=== PATIENT | female | born 1955 | race African-American/Black ===

== ENCOUNTER 2019-10-19 15:24 | Inpatient (IN) | payer MEDICAID ==
[~2019-10-19] VITALS: Ht 162.6 cm; Wt 95.7 kg
[2019-10-19 16:07] LABS: BASOPHILS % 0.8 % (0.0-2.0); EOSINOPHILS % 0.4 % (0.0-5.0); HEMATOCRIT. 38.1 % (36.0-48.0); HEMOGLOBIN. 12.8 g/dL (12.0-16.0); LYMPHOCYTES % 20.9 % (20.0-50.0); MEAN CORPUSCULAR HEMOGLOBIN 30.6 pg (28.0-32.0); MEAN CORPUSCULAR VOLUME 90.8 fL (81.0-99.0); MEAN PLATELET VOLUME 7.9 fl (7.4-10.4); MONOCYTES % 5.3 % (2.0-8.0); NEUTROPHILS % 72.6 % (40.0-76.0); PLATELET 294 x1000/uL (130-400); RED CELL DISTRIBUTION WIDTH 13.8 % (11.6-14.6)
[2019-10-19 16:08] LABS: CHLORIDE 105 mEq/L (98-107)
[2019-10-19] MEDS ORDERED: SODIUM CHLORIDE 0.9% 1,000 ML IV ONE (21:16)
[2019-10-19] MEDS ORDERED: AZITHROMYCIN 500 MG in DEXT 5% WATER 250 ML IV ONE (21:30)
[2019-10-20] MEDS ORDERED: ACETAMINOPHEN 325MG TABLET PO PRN (08:45)
[2019-10-20 12:00] VITALS: BP 161/62
[2019-10-20] MEDS: AZITHROMYCIN 500 MG TABLET PO SCH (12:53)
[2019-10-20] MEDS ORDERED: HYDR-4135 MT (13:30)
[2019-10-20] MEDS ORDERED: FERR325T6 MT (13:30)
[2019-10-20] MEDS ORDERED: METO-539 PO (13:30)
[2019-10-20] MEDS ORDERED: DOCU-150 PO (13:30)
[2019-10-20] MEDS ORDERED: AMLO10TA80 PO (13:30)
[2019-10-20] MEDS ORDERED: ATOR40TA70 MT (13:30)
[2019-10-20] MEDS ORDERED: FOLI-43 PO (13:30)
[2019-10-20 13:38] VITALS: BP 161/62
[2019-10-20 16:00] VITALS: BP 139/56
[2019-10-20] MEDS: ENOXAPARIN 40MG/0.4ML SYR SUBCUT SCH (16:27)
[2019-10-20] MEDS: METOPROLOL TARTRATE 50MG TABLET PO SCH (16:50)
[2019-10-20 20:00] VITALS: BP 171/73
[2019-10-20] MEDS: ATORVASTATIN CALCIUM 40MG TABLET PO SCH (21:10)
[2019-10-20] MEDS: HYDRALAZINE HCL 50MG TABLET PO SCH (21:10)
[2019-10-20] MEDS: AMLODIPINE 5MG TABLET PO SCH (21:10)
[2019-10-20] MEDS: BENZONATATE 100MG CAPSULE PO PRN (21:10)
[2019-10-20 23:21] VITALS: BP 158/70
[2019-10-21 04:00] VITALS: BP 133/43
[2019-10-21] MEDS: HYDRALAZINE HCL 50MG TABLET PO SCH ×3 (05:39→22:42)
[2019-10-21 08:00] VITALS: BP 151/55
[2019-10-21] MEDS ORDERED: AMLODIPINE 10MG TABLET PO SCH (09:00)
[2019-10-21] MEDS: AZITHROMYCIN 500 MG TABLET PO SCH (09:21)
[2019-10-21] MEDS: DOCUSATE SODIUM 100MG CAPSULE PO SCH ×2 (09:21→13:20)
[2019-10-21] MEDS: FOLIC ACID 1MG TABLET PO SCH (09:21)
[2019-10-21] MEDS: ENOXAPARIN 40MG/0.4ML SYR SUBCUT SCH (09:24)
[2019-10-21] MEDS: AMLODIPINE 5MG TABLET PO SCH ×2 (09:56→20:37)
[2019-10-21 16:00] VITALS: BP 111/52
[2019-10-21] MEDS: METOPROLOL TARTRATE 50MG TABLET PO SCH (17:01)
[2019-10-21 20:08] VITALS: BP 124/48
[2019-10-21] MEDS: ATORVASTATIN CALCIUM 40MG TABLET PO SCH (20:37)
[2019-10-21 23:55] VITALS: BP 111/45
[2019-10-22 04:00] VITALS: BP 116/43
[2019-10-22] MEDS: HYDRALAZINE HCL 50MG TABLET PO SCH ×3 (05:31→21:44)
[2019-10-22 08:00] VITALS: BP 105/42
[2019-10-22] MEDS: DOCUSATE SODIUM 100MG CAPSULE PO SCH ×2 (08:23→14:34)
[2019-10-22] MEDS: AMLODIPINE 5MG TABLET PO SCH ×2 (09:00→21:44)
[2019-10-22] MEDS: FOLIC ACID 1MG TABLET PO SCH (09:12)
[2019-10-22] MEDS: AZITHROMYCIN 500 MG TABLET PO SCH (09:13)
[2019-10-22] MEDS: ENOXAPARIN 40MG/0.4ML SYR SUBCUT SCH (09:14)
[2019-10-22 12:00] VITALS: BP 141/48
[2019-10-22] MEDS: METOPROLOL TARTRATE 50MG TABLET PO SCH (18:12)
[2019-10-22 20:13] VITALS: BP 125/38
[2019-10-22] MEDS ORDERED: ENOXAPARIN 30MG/0.3ML SYR SUBCUT SCH (21:00)
[2019-10-22] MEDS: ATORVASTATIN CALCIUM 40MG TABLET PO SCH (21:44)
[2019-10-23] VITALS: BP 107/46
[2019-10-23 04:00] VITALS: BP 121/40
[2019-10-23] MEDS: HYDRALAZINE HCL 50MG TABLET PO SCH ×3 (05:14→21:05)
[2019-10-23] MEDS: PANTOPRAZOLE 40MG DR TABLET PO SCH (06:17)
[2019-10-23 08:00] VITALS: BP 106/49
[2019-10-23] MEDS: AMLODIPINE 5MG TABLET PO SCH ×2 (09:00→21:04)
[2019-10-23] MEDS: FOLIC ACID 1MG TABLET PO SCH (09:04)
[2019-10-23] MEDS: AZITHROMYCIN 500 MG TABLET PO SCH (09:04)
[2019-10-23] MEDS: DOCUSATE SODIUM 100MG CAPSULE PO SCH ×2 (09:04→16:50)
[2019-10-23 11:41] LABS: BASOPHILS % 0.5 % (0.0-2.0); EOSINOPHILS % 0.7 % (0.0-5.0); HEMATOCRIT. 35.9 % (36.0-48.0); LYMPHOCYTES % 24.2 % (20.0-50.0); MEAN CORPUSCULAR HEMOGLOBIN 30.9 pg (28.0-32.0); MEAN CORPUSCULAR VOLUME 92.2 fL (81.0-99.0); MONOCYTES % 4.7 % (2.0-8.0); NEUTROPHILS % 69.9 % (40.0-76.0); PLATELET 259 x1000/uL (130-400); RED CELL DISTRIBUTION WIDTH 13.7 % (11.6-14.6)
[2019-10-23 11:52] LABS: CHLORIDE 107 mEq/L (98-107)
[2019-10-23 12:00] VITALS: BP 122/41
[2019-10-23 12:05] LABS: PROTHROMBIN TIME 11.3 sec (9.6-11.0)
[2019-10-23 16:00] VITALS: BP 141/39
[2019-10-23] MEDS: SUCRALFATE 1 G/10 ML UDC PO SCH ×2 (16:40→21:04)
[2019-10-23] MEDS: METOPROLOL TARTRATE 50MG TABLET PO SCH (17:03)
[2019-10-23 20:00] VITALS: BP 147/97
[2019-10-23] MEDS: ATORVASTATIN CALCIUM 40MG TABLET PO SCH (21:04)
[2019-10-24] VITALS: BP 117/47
[2019-10-24 04:00] VITALS: BP 124/48
[2019-10-24] MEDS: SUCRALFATE 1 G/10 ML UDC PO SCH ×4 (05:51→20:34)
[2019-10-24] MEDS: PANTOPRAZOLE 40MG DR TABLET PO SCH (05:51)
[2019-10-24] MEDS: HYDRALAZINE HCL 50MG TABLET PO SCH ×3 (05:51→20:35)
[2019-10-24 08:00] VITALS: BP 136/48
[2019-10-24] MEDS: FOLIC ACID 1MG TABLET PO SCH (08:57)
[2019-10-24] MEDS: AZITHROMYCIN 500 MG TABLET PO SCH (08:57)
[2019-10-24] MEDS: DOCUSATE SODIUM 100MG CAPSULE PO SCH ×2 (08:57→17:40)
[2019-10-24] MEDS: AMLODIPINE 5MG TABLET PO SCH ×2 (09:23→20:35)
[2019-10-24 12:00] VITALS: BP 122/45
[2019-10-24 15:38] VITALS: BP 105/43
[2019-10-24] MEDS: METOPROLOL TARTRATE 50MG TABLET PO SCH (17:00)
[2019-10-24 20:00] VITALS: BP 125/55
[2019-10-24] MEDS: ATORVASTATIN CALCIUM 40MG TABLET PO SCH (20:34)
[2019-10-25] VITALS: BP 105/49
[2019-10-25 04:00] VITALS: BP 117/41
[2019-10-25] MEDS: PANTOPRAZOLE 40MG DR TABLET PO SCH (05:01)
[2019-10-25] MEDS: HYDRALAZINE HCL 50MG TABLET PO SCH ×3 (05:01→21:55)
[2019-10-25] MEDS: SUCRALFATE 1 G/10 ML UDC PO SCH ×4 (05:01→21:52)
[2019-10-25 06:28] LABS: BASOPHILS % 0.7 % (0.0-2.0); EOSINOPHILS % 1.4 % (0.0-5.0); HEMOGLOBIN. 11.8 g/dL (12.0-16.0); LYMPHOCYTES % 32.1 % (20.0-50.0); MEAN CORPUSCULAR HEMOGLOBIN 30.8 pg (28.0-32.0); MEAN CORPUSCULAR VOLUME 91.5 fL (81.0-99.0); NEUTROPHILS % 59.8 % (40.0-76.0); PLATELET 258 x1000/uL (130-400); RED BLOOD CELL COUNT 3.83 mill/uL (4.2-5.4); RED CELL DISTRIBUTION WIDTH 13.5 % (11.6-14.6); TOTAL IRON BINDING CAPACITY 214 ug/dL (250-450)
[2019-10-25 08:00] VITALS: BP 102/54
[2019-10-25] MEDS: AMLODIPINE 5MG TABLET PO SCH ×2 (09:00→21:55)
[2019-10-25] MEDS: DOCUSATE SODIUM 100MG CAPSULE PO SCH ×2 (09:39→17:07)
[2019-10-25] MEDS: FOLIC ACID 1MG TABLET PO SCH (09:39)
[2019-10-25] MEDS: AZITHROMYCIN 500 MG TABLET PO SCH (09:39)
[2019-10-25 12:00] VITALS: BP 122/42
[2019-10-25 16:00] VITALS: BP 126/45
[2019-10-25] MEDS: METOPROLOL TARTRATE 50MG TABLET PO SCH (17:00)
[2019-10-25 20:00] VITALS: BP 127/50
[2019-10-25] MEDS: ATORVASTATIN CALCIUM 40MG TABLET PO SCH (21:52)
[2019-10-26] VITALS: BP 117/44
[2019-10-26 04:00] VITALS: BP 121/47
[2019-10-26] MEDS: PANTOPRAZOLE 40MG DR TABLET PO SCH (05:25)
[2019-10-26] MEDS: SUCRALFATE 1 G/10 ML UDC PO SCH ×4 (05:25→21:00)
[2019-10-26] MEDS: HYDRALAZINE HCL 50MG TABLET PO SCH ×3 (05:26→21:01)
[2019-10-26 08:00] VITALS: BP 118/49
[2019-10-26 08:10] LABS: BASOPHILS % 0.6 % (0.0-2.0); EOSINOPHILS % 1.2 % (0.0-5.0); HEMATOCRIT. 34.5 % (36.0-48.0); HEMOGLOBIN. 11.8 g/dL (12.0-16.0); LYMPHOCYTES % 34.8 % (20.0-50.0); MEAN PLATELET VOLUME 7.9 fl (7.4-10.4); MONOCYTES % 6.4 % (2.0-8.0); PLATELET 251 x1000/uL (130-400); RED BLOOD CELL COUNT 3.79 mill/uL (4.2-5.4); RED CELL DISTRIBUTION WIDTH 13.7 % (11.6-14.6)
[2019-10-26] MEDS: AZITHROMYCIN 500 MG TABLET PO SCH (08:53)
[2019-10-26] MEDS: FOLIC ACID 1MG TABLET PO SCH (08:53)
[2019-10-26] MEDS: DOCUSATE SODIUM 100MG CAPSULE PO SCH ×2 (08:53→16:46)
[2019-10-26] MEDS: AMLODIPINE 5MG TABLET PO SCH ×2 (08:54→21:01)
[2019-10-26 12:00] VITALS: BP 118/46
[2019-10-26 16:00] VITALS: BP 118/53
[2019-10-26] MEDS: METOPROLOL TARTRATE 50MG TABLET PO SCH (16:46)
[2019-10-26 20:00] VITALS: BP 139/58
[2019-10-26] MEDS: ATORVASTATIN CALCIUM 40MG TABLET PO SCH (21:00)
[2019-10-27] VITALS: BP 136/47
[2019-10-27 04:00] VITALS: BP 135/52
[2019-10-27] MEDS: SUCRALFATE 1 G/10 ML UDC PO SCH ×4 (06:05→21:33)
[2019-10-27] MEDS: HYDRALAZINE HCL 50MG TABLET PO SCH ×3 (06:05→21:33)
[2019-10-27] MEDS: PANTOPRAZOLE 40MG DR TABLET PO SCH (06:05)
[2019-10-27 08:00] VITALS: BP 105/51
[2019-10-27 08:22] LABS: EOSINOPHILS % 1.4 % (0.0-5.0); HEMATOCRIT. 34.4 % (36.0-48.0); HEMOGLOBIN. 11.7 g/dL (12.0-16.0); LYMPHOCYTES % 35.8 % (20.0-50.0); MEAN CORPUSCULAR HEMOGLOBIN 31.1 pg (28.0-32.0); MEAN CORPUSCULAR VOLUME 91.3 fL (81.0-99.0); MEAN PLATELET VOLUME 8.1 fl (7.4-10.4); MONOCYTES % 6.2 % (2.0-8.0); NEUTROPHILS % 55.6 % (40.0-76.0); PLATELET 239 x1000/uL (130-400); RED BLOOD CELL COUNT 3.77 mill/uL (4.2-5.4); RED CELL DISTRIBUTION WIDTH 13.4 % (11.6-14.6)
[2019-10-27] MEDS: POLYETHYLENE GLYCOL 3350 (17GM) 1 DOSE PACK PO SCH (09:00)
[2019-10-27] MEDS: AMLODIPINE 5MG TABLET PO SCH ×2 (09:00→21:34)
[2019-10-27] MEDS: AZITHROMYCIN 500 MG TABLET PO SCH (09:54)
[2019-10-27] MEDS: DOCUSATE SODIUM 100MG CAPSULE PO SCH ×2 (09:54→18:00)
[2019-10-27] MEDS: FOLIC ACID 1MG TABLET PO SCH (09:54)
[2019-10-27 12:00] VITALS: BP_SYST 122; BP_SYST 133; BP_DIAS 63; BP_DIAS 73
[2019-10-27 16:00] VITALS: BP 125/57
[2019-10-27] MEDS: METOPROLOL TARTRATE 50MG TABLET PO SCH (17:00)
[2019-10-27 20:53] VITALS: BP 127/47
[2019-10-27] MEDS: ATORVASTATIN CALCIUM 40MG TABLET PO SCH (21:33)
[2019-10-28] VITALS: BP 111/42
[2019-10-28 04:00] VITALS: BP 116/47
[2019-10-28] MEDS: SUCRALFATE 1 G/10 ML UDC PO SCH ×4 (06:13→21:04)
[2019-10-28] MEDS: PANTOPRAZOLE 40MG DR TABLET PO SCH (06:13)
[2019-10-28] MEDS: HYDRALAZINE HCL 50MG TABLET PO SCH ×3 (06:14→21:04)
[2019-10-28 07:01] LABS: BASOPHILS % 0.6 % (0.0-2.0); EOSINOPHILS % 1.1 % (0.0-5.0); HEMATOCRIT. 36.5 % (36.0-48.0); HEMOGLOBIN. 12.4 g/dL (12.0-16.0); LYMPHOCYTES % 34.3 % (20.0-50.0); MEAN CORPUSCULAR HEMOGLOBIN 31.1 pg (28.0-32.0); MEAN CORPUSCULAR VOLUME 91.3 fL (81.0-99.0); MEAN PLATELET VOLUME 7.8 fl (7.4-10.4); MONOCYTES % 6.1 % (2.0-8.0); NEUTROPHILS % 57.9 % (40.0-76.0); PLATELET 261 x1000/uL (130-400); RED BLOOD CELL COUNT 3.99 mill/uL (4.2-5.4)
[2019-10-28 08:00] VITALS: BP 130/57
[2019-10-28] MEDS: AMLODIPINE 5MG TABLET PO SCH ×2 (09:53→21:00)
[2019-10-28] MEDS: POLYETHYLENE GLYCOL 3350 (17GM) 1 DOSE PACK PO SCH (09:53)
[2019-10-28] MEDS: DOCUSATE SODIUM 100MG CAPSULE PO SCH ×2 (09:53→17:00)
[2019-10-28] MEDS: FOLIC ACID 1MG TABLET PO SCH (09:53)
[2019-10-28 12:00] VITALS: BP 127/50
[2019-10-28 16:00] VITALS: BP 134/51
[2019-10-28] MEDS: METOPROLOL TARTRATE 50MG TABLET PO SCH (17:00)
[2019-10-28 20:00] VITALS: BP 105/66
[2019-10-28] MEDS: ATORVASTATIN CALCIUM 40MG TABLET PO SCH (21:04)
[2019-10-28] MEDS: BENZONATATE 100MG CAPSULE PO PRN (21:04)
[2019-10-29 00:17] VITALS: BP 135/63
[2019-10-29 04:00] VITALS: BP 134/52
[2019-10-29] MEDS: SUCRALFATE 1 G/10 ML UDC PO SCH ×4 (05:13→21:17)
[2019-10-29] MEDS: HYDRALAZINE HCL 50MG TABLET PO SCH ×3 (05:14→21:18)
[2019-10-29] MEDS: PANTOPRAZOLE 40MG DR TABLET PO SCH (05:14)
[2019-10-29 08:00] VITALS: BP 122/64
[2019-10-29 08:36] LABS: BASOPHILS % 0.7 % (0.0-2.0); EOSINOPHILS % 1.1 % (0.0-5.0); HEMATOCRIT. 34.1 % (36.0-48.0); HEMOGLOBIN. 11.7 g/dL (12.0-16.0); LYMPHOCYTES % 37.4 % (20.0-50.0); MEAN CORPUSCULAR HEMOGLOBIN 31.2 pg (28.0-32.0); MEAN CORPUSCULAR VOLUME 90.9 fL (81.0-99.0); MEAN PLATELET VOLUME 8.4 fl (7.4-10.4); MONOCYTES % 6.1 % (2.0-8.0); NEUTROPHILS % 54.7 % (40.0-76.0); PLATELET 245 x1000/uL (130-400); RED BLOOD CELL COUNT 3.75 mill/uL (4.2-5.4); RED CELL DISTRIBUTION WIDTH 14.1 % (11.6-14.6)
[2019-10-29] MEDS: POLYETHYLENE GLYCOL 3350 (17GM) 1 DOSE PACK PO SCH ×2 (09:00→09:54)
[2019-10-29] MEDS: FOLIC ACID 1MG TABLET PO SCH (09:54)
[2019-10-29] MEDS: DOCUSATE SODIUM 100MG CAPSULE PO SCH ×2 (09:54→16:50)
[2019-10-29] MEDS: AMLODIPINE 5MG TABLET PO SCH ×2 (09:56→21:18)
[2019-10-29 12:15] VITALS: BP 112/41
[2019-10-29 16:33] VITALS: BP 109/42
[2019-10-29] MEDS: METOPROLOL TARTRATE 50MG TABLET PO SCH (16:42)
[2019-10-29 20:00] VITALS: BP 155/70
[2019-10-29] MEDS: ATORVASTATIN CALCIUM 40MG TABLET PO SCH (21:18)
[2019-10-30] VITALS (7 sets, daily range): BP systolic 109–131; BP diastolic 46–59
[2019-10-30] MEDS: SUCRALFATE 1 G/10 ML UDC PO SCH ×4 (05:43→22:28)
[2019-10-30] MEDS: PANTOPRAZOLE 40MG DR TABLET PO SCH (05:44)
[2019-10-30] MEDS: HYDRALAZINE HCL 50MG TABLET PO SCH ×3 (05:44→22:28)
[2019-10-30] MEDS: POLYETHYLENE GLYCOL 3350 (17GM) 1 DOSE PACK PO SCH (08:23)
[2019-10-30] MEDS: FOLIC ACID 1MG TABLET PO SCH (08:23)
[2019-10-30] MEDS: DOCUSATE SODIUM 100MG CAPSULE PO SCH ×2 (08:23→17:00)
[2019-10-30] MEDS: AMLODIPINE 5MG TABLET PO SCH ×3 (08:24→22:28)
[2019-10-30] MEDS: METOPROLOL TARTRATE 50MG TABLET PO SCH (17:00)
[2019-10-30] MEDS: ATORVASTATIN CALCIUM 40MG TABLET PO SCH (22:28)
[2019-10-31] VITALS: BP 128/51
[2019-10-31 04:00] VITALS: BP 142/44
[2019-10-31] MEDS: HYDRALAZINE HCL 50MG TABLET PO SCH (06:00)
[2019-10-31] MEDS: PANTOPRAZOLE 40MG DR TABLET PO SCH (06:16)
[2019-10-31] MEDS: SUCRALFATE 1 G/10 ML UDC PO SCH (06:16)
[2019-10-31 08:00] VITALS: BP 121/48
[2019-10-31] MEDS: POLYETHYLENE GLYCOL 3350 (17GM) 1 DOSE PACK PO SCH (09:11)
[2019-10-31] MEDS: AMLODIPINE 5MG TABLET PO SCH (09:12)
[2019-10-31] MEDS: FOLIC ACID 1MG TABLET PO SCH (09:12)
[2019-10-31] MEDS: DOCUSATE SODIUM 100MG CAPSULE PO SCH (09:12)
== END 2019-10-31 12:47 | DRG 720 ==
LOC: ER 15:24 → 7EST 21:17 → EDBEDREQTM 21:19 → EDBEDREQ 21:19 → EDBEDREQSVC 21:44 → ENRESERV 10-20 08:49
PROVIDERS: ADMIT Internal Medicine; ATTEND Internal Medicine
DX: A41.89 Other specified sepsis (principal); U07.1 COVID-19; J96.00 Acute respiratory failure, unspecified whether with hypoxia or hypercapnia; E44.1 Mild protein-calorie malnutrition; E11.9 Type 2 diabetes mellitus without complications; D64.9 Anemia, unspecified; F41.9 Anxiety disorder, unspecified; J12.89 Other viral pneumonia; I25.10 Atherosclerotic heart disease of native coronary artery without angina pectoris; I10 Essential (primary) hypertension; J20.8 Acute bronchitis due to other specified organisms; M19.90 Unspecified osteoarthritis, unspecified site; K92.1 Melena; Z86.73 Personal history of transient ischemic attack (TIA), and cerebral infarction without residual deficits; Z68.36 Body mass index [BMI] 36.0-36.9, adult; Z79.899 Other long term (current) drug therapy
CPT/HCPCS: 36415; 71045; 80053; 82270; 82728; 83036; 83540; 83550; 83605; 83615; 84484; 85025; 85379; 85384; 93005; 99285; J0456; J1650; J7030; J7060; U0003-CS